=== PATIENT | male | born 2000 | race Caucasian/White ===

== ENCOUNTER 2021-10-25 16:32 | Inpatient (IN) ==
[2021-10-25 17:04] LABS: Basophils # (auto) 0.04 K/uL (0-0.2); Basophils % (auto) 0.7 %; Eosinophils # (auto) 0.25 K/uL (0-0.5); Eosinophils % (auto) 4.4 %; Hematocrit (blood only) 40.1 % (42-52); Hemoglobin 14.1 g/dL (14.0-18.0); Immature Granulocytes # (auto) 0.01 K/uL (0.00-0.02); Immature Granulocytes % (auto) 0.2 %; Lymphocytes # (auto) 1.89 K/uL (1.2-3.4); Mean Corpuscular Hemoglobin 30.9 pg (25-34); Mean Corpuscular Hgb Conc 35.2 g/dL (32-36); Mean Corpuscular Volume 87.9 fL (80-100); Mean Platelet Volume 9.9 fL (7.4-10.4); Monocytes # (auto) 0.56 K/uL (0.11-0.59); Monocytes % (auto) 9.8 %; Neutrophils # (auto) 2.98 K/uL (1.4-6.5); Neutrophils % (auto) 51.9 %; Platelet Count 152 K/uL (130-400); RDW Coefficient of Variation 12.5 % (11.5-14.5); RDW Standard Deviation 40.1 fL (36.4-46.3); Red Blood Count 4.56 M/uL (4.7-6.1); White Blood Count 5.73 K/uL (4.8-10.8)
[2021-10-25 17:17] LABS: Appearance Urine Clear (Clear); Bacteria Urine Automated Negative (Negative); Bilirubin Urine Negative (Negative); Blood Urine Trace (Negative); Cast Urine Automated 0 /lpf (0-5); Color Urine Yellow; Epithelial Cell Urine Auto 0-5 /lpf (0-5); Glucose Urine UA Negative (Negative); Ketones Urine Negative (Negative); Leukocyte Esterase Urine Negative (Negative); Nitrite Urine Negative (Negative); Protein Urine Negative (Negative); RBC Urine Automated 0-4 /hpf (0-4); Specific Gravity Urine 1.007 (1.000-1.030); Urobilinogen Urine Negative (Negative); WBC Urine Automated 0 /hpf (0-5); pH Urine 7.5 (4.5-7.5)
[2021-10-25 17:22] LABS: Albumin Level 4.2 gm/dl (3.4-5.0); BUN Creatinine Ratio 9.8 (10-20); Calcium 9.1 mg/dl (8.5-10.1); Creatinine Clr Calc Pharmacy 120.7 ml/min; Est GFR (African American) 139.3 ml/min; Est GFR (Non-African American) 120.2 ml/min
--- NOTE | 2021-10-25 17:28 | Emergency Department Note ---
Impression & Plan Drug overdose, Suicide attempt by multiple drug overdose ED Provider Note NAME: SAE ARIAS AGE: 20 SEX: M : 2000 ARRIVES VIA: Ambulance INFORMANT: Patient ED PROVIDER(S): Naga Lira DO CHIEF COMPLAINT: Intentional overdose HPI: Patient is a 20-year-old male who presents ER for intentional overdose of hydroxyzine and Lexapro. Hydroxyzine was 25 mg and Lexapro was 10 mg. He believes he had a 30-day supply of each and took about half of the bottle of each around 4 PM. History of depression PTSD and anxiety. He admits that this was a suicide attempt. He denies any change in vision, chest pain, shortness of breath, nausea, vomiting or diarrhea. He admits to a mild headache. No other exacerbating or remitting factors. ROS: See above HPI for pertinent positives & negatives. A total of 10 systems reviewed and were otherwise negative. PAST MEDICAL HISTORY:See Below PAST SURGICAL HISTORY:See Below FAMILY HISTORY:See Below SOCIAL HISTORY:See Below HOME MEDICATIONS:See Below ALLERGIES:See Below VITALS:See Below PHYSICAL EXAMINATION: GENERAL: Sitting up in bed, alert, well appearing, tired, nontoxic EYE EXAM: normal conjunctiva. PERRL and EOM's grossly intact. OROPHARYNX:mask in place LUNGS: Clear to auscultation. Normal chest wall mechanics HEART: no murmurs, S1 normal and S2 normal ABDOMEN: abdomen soft, non-tender, normo-active bowel sounds, no masses, no rebound or guarding. UPPER EXTREMITIES: upper extremities are grossly normal. LOWER EXTREMITIES: No pitting edema. NEURO EXAM: Normal sensorium, cranial nerves II-XII grossly intact, normal speech, no gross weakness of arms, no gross weakness of legs. PSYCH: Admits to suicide attempt with overdose MEDICAL DECISION MAKING: Patient is a 20-year-old male who presents the ER for an intentional overdose as stated above. IV was established blood work was obtained. To contact [facility] poison control. Labs show no significant leukocytosis or anemia. BMP was unremarkable. Mild transaminitis with AST of 64 and ALT of 128. No old to compare to. TSH was unremarkable. UA was negative. Patient was positive for marijuana. Tylenol and salicylates were negative. Patient was monitored closely while in the ER. With the transaminitis [facility] recommended N-acetylcysteine/NAC protocol. Repeat LFTs and INR 4 hours prior to termination of this. Patient will be admitted to the hospitalist Dr. Thomas Peace. Triage Nursing notes reviewed. Limited review of prior medical records performed Vital Signs: reviewed and remarkable for no significant abnormalities Differential diagnosis: Overdose, toxicologic, infection, hypoglycemia, electrolyte abnormalities, cardi ac sources, intracerebral event, neurologic, trauma, as well as other pathologies. ER treatment provided: See below Diagnostics interpreted by me: ECG: Sinus rhythm rate 71 Normal axis No PVCs QTC 423 Cardiac Monitoring: An order was placed for continuous cardiac monitoring. The monitor shows a rate of 70 with sinus rhythm. Laboratory studies: As stated above and show below. Imaging studies: See below Consultation(s): Discussed with [facility] poison control as stated above Discussed with Thomas Peace for further evaluation Procedures: none Critical Care: None Past Med/Surg History Social History Smoking Status: Never smoker Feels Safe at Home: Yes Results & Data (ED) Vital Signs Vital Signs - 24 hr 10/25/21 17:00 10/25/21 17:14 10/25/21 18:00 Temperature 36.9 C Temperature Source Oral Pulse Rate [Right Finger] 78 75 Pulse Rhythm [Right Finger] Regular Regular Pulse Strength [Right Finger] Normal Normal Respiratory Rate 14 17 Respiratory Effort / Characteristics Non-Labored Spontaneous Non-Labored Spontaneous Respiratory Depth Normal Normal Respiratory Pattern Regular Regular Blood Pressure [Left Arm] 126/73 146/87 H Blood Pressure Mean [Left Arm] 90 106 Blood Pressure Position [Left Arm] Lying Semi-fowlers Pulse Oximetry 93 95 Oxygen Delivery Method Room Air Room Air Sepsis Recent Fever Within 48 Hours No Sepsis New/Unexplained Change in Mental Status N/A Sepsis Action Taken by Nursing No Action Required Laboratory Data Result diagrams: 10/25/21 16:55 10/25/21 16:55 Lab Results 10/25/21 10/25/21 10/25/21 Range/Units 16:45 16:45 16:55 WBC 5.73 (4.8-10.8) K/uL RBC 4.56 L (4.7-6.1) M/uL Hgb 14.1 (14.0-18.0) g/dL Hct 40.1 L (42-52) % MCV 87.9 (80-100) fL MCH 30.9 (25-34) pg MCHC 35.2 (32-36) g/dL RDW Std Deviation 40.1 (36.4-46.3) fL RDW Coeff of Dale 12.5 (11.5-14.5) % Plt Count 152 (130-400) K/uL MPV 9.9 (7.4-10.4) fL Immature Gran % (Auto) 0.2 % Neut % (Auto) 51.9 % Lymph % (Auto) 33.0 % [place] % (Auto) 9.8 % Eos % (Auto) 4.4 % Baso % (Auto) 0.7 % Neut # (Auto) 2.98 (1.4-6.5) K/uL Lymph # (Auto) 1.89 (1.2-3.4) K/uL [place] # (Auto) 0.56 (0.11-0.59) K/uL Eos # (Auto) 0.25 (0-0.5) K/uL Baso # (Auto) 0.04 (0-0.2) K/uL Immature Gran # (Auto) 0.01 (0.00-0.02) K/uL Sodium (136-145) mmol/L Potassium (3.5-5.1) mmol/L Chloride (98-107) mmol/L Carbon Dioxide (21-32) mmol/L Anion Gap (3-11) BUN (7-18) mg/dl Creatinine (0.6-1.4) mg/dl Est Cr Clr Drug Dosing ml/min Est GFR ( Amer) ml/min Est GFR (Non-Af Amer) ml/min BUN/Creatinine Ratio (10-20) Glucose (70-99) mg/dl Calcium (8.5-10.1) mg/dl Total Bilirubin (0.2-1) mg/dl AST (15-37) U/L ALT (12-78) Alkaline Phosphatase (45-117) U/L Total Protein (6.4-8.2) gm/dl Albumin (3.4-5.0) gm/dl Globulin (2.5-4.0) gm/dl Albumin/Globulin Ratio (0.9-2) TSH (0.300-4.500) uIu/ml Urine Color Yellow Urine Appearance Clear (Clear) Urine pH 7.5 (4.5-7.5) Ur Specific [place] 1.007 (1.000-1.030) Urine Protein Negative (Negative) Urine Glucose (UA) Negative (Negative) Urine Ketones Negative (Negative) Urine Blood Trace H (Negative) Urine Nitrite Negative (Negative) Urine Bilirubin Negative (Negative) Urine Urobilinogen Negative (Negative) Ur Leukocyte Esterase Negative (Negative) Urine WBC (Auto) 0 (0-5) /hpf Urine RBC (Auto) 0-4 (0-4) /hpf U Hyaline Cast (Auto) 0 (0-5) /lpf U Epithel Cells (Auto) 0-5 (0-5) /lpf Urine Bacteria (Auto) Negative (Negative) Salicylates (2.8-20) mg/dl Urine Opiates Screen Neg (Neg) Ur Methadone, Qual Neg (Neg) Acetaminophen (10-30) ug/ml Urine Barbiturates Neg (Neg) Ur Phencyclidine (PCP) Neg (Neg) U Amphetamin/Meth Scrn Neg (Neg) MDMA (Ecstasy) Screen Neg (Neg) U Benzodiazepines Scrn Neg (Neg) Ur Cocaine Metabolite Neg (Neg) U Marijuana (THC) Screen Pos H (Neg) Ethyl Alcohol mg/dL (0-3) mg/dl 10/25/21 10/25/21 10/25/21 Range/Units 16:55 17:25 17:25 WBC (4.8-10.8) K/uL RBC (4.7-6.1) M/uL Hgb (14.0-18.0) g/dL Hct (42-52) % MCV (80-100) fL MCH (25-34) pg MCHC (32-36) g/dL RDW Std Deviation (36.4-46.3) fL RDW Coeff of [place] (11.5-14.5) % Plt Count (130-400) K/uL MPV (7.4-10.4) fL Immature Gran % (Auto) % Neut % (Auto) % Lymph % (Auto) % [place] % (Auto) % Eos % (Auto) % Baso % (Auto) % Neut # (Auto) (1.4-6.5) K/uL Lymph # (Auto) (1.2-3.4) K/uL [place] # (Auto) (0.11-0.59) K/uL Eos # (Auto) (0-0.5) K/uL Baso # (Auto) (0-0.2) K/uL Immature Gran # (Auto) (0.00-0.02) K/uL Sodium 138 (136-145) mmol/L Potassium 4.0 (3.5-5.1) mmol/L Chloride 104 (98-107) mmol/L Carbon Dioxide 28 (21-32) mmol/L Anion Gap 6.0 (3-11) BUN 9 (7-18) mg/dl Creatinine 0.92 (0.6-1.4) mg/dl Est Cr Clr Drug Dosing 120.7 ml/min Est GFR ( Amer) 139.3 ml/min Est GFR (Non-Af Amer) 120.2 ml/min BUN/Creatinine Ratio 9.8 L (10-20) Glucose 96 (70-99) mg/dl Calcium 9.1 (8.5-10.1) mg/dl Total Bilirubin 0.4 (0.2-1) mg/dl AST 64 H (15-37) U/L ALT 128 H (12-78) Alkaline Phosphatase 76 (45-117) U/L Total Protein 7.5 (6.4-8.2) gm/dl Albumin 4.2 (3.4-5.0) gm/dl Globulin 3.3 (2.5-4.0) gm/dl Albumin/Globulin Ratio 1.3 (0.9-2) TSH 2.720 (0.300-4.500) uIu/ml Urine Color Urine Appearance (Clear) Urine pH (4.5-7.5) Ur Specific [place] (1.000-1.030) Urine Protein (Negative) Urine Glucose (UA) (Negative) Urine Ketones (Negative) Urine Blood (Negative) Urine Nitrite (Negative) Urine Bilirubin (Negative) Urine Urobilinogen (Negative) Ur Leukocyte Esterase (Negative) Urine WBC (Auto) (0-5) /hpf Urine RBC (Auto) (0-4) /hpf U Hyaline Cast (Auto) (0-5) /lpf U Epithel Cells (Auto) (0-5) /lpf Urine Bacteria (Auto) (Negative) Salicylates < 1.7 L (2.8-20) mg/dl Urine Opiates Screen (Neg) Ur Methadone, Qual (Neg) Acetaminophen < 2 L (10-30) ug/ml Urine Barbiturates (Neg) Ur Phencyclidine (PCP) (Neg) U Amphetamin/Meth Scrn (Neg) MDMA (Ecstasy) Screen (Neg) U Benzodiazepines Scrn (Neg) Ur Cocaine Metabolite (Neg) U Marijuana (THC) Screen (Neg) Ethyl Alcohol mg/dL < 3.0 (0-3) mg/dl Discharge Plan Visit Data Chief Complaint: Overdose (Intentional) ED Provider: Naga Lira Discharge Problem: Drug overdose, Suicide attempt by multiple drug overdose Forms Stand Alone Forms: [facility], Suicide Prevention Resources Referrals Referrals: PCP,NO [Physician] - Discharge Problem: Drug overdose Qualifiers: Encounter type: initial encounter Injury intent: intentional self-harm Qualified Code(s): T50.902A - Poisoning by unspecified drugs, medicaments and biological substances, intentional self-harm, initial encounter Suicide attempt by multiple drug overdose Qualifiers: Encounter type: initial encounter Qualified Code(s): T50.912A - Poisoning by multiple unspecified drugs, medicaments and biological substances, intentional self-harm, initial encounter
[2021-10-25 17:32] LABS: Albumin Globulin Ratio 1.3 (0.9-2); Bilirubin,Total 0.4 mg/dl (0.2-1); Globulin 3.3 gm/dl (2.5-4.0); Thyroid Stimulating Hormone 2.72 uIu/ml (0.300-4.500); Total Protein 7.5 gm/dl (6.4-8.2)
[2021-10-25 17:34] LABS: Amphetamines+Metham, Urine Neg (Neg); Barbiturates, Urine Neg (Neg); Benzodiazepine, Urine Neg (Neg); Cocaine, Urine Neg (Neg); MDMA (Ecstacy), Urine Neg (Neg); Methadone, Urine Neg (Neg); Opiate, Urine Neg (Neg); Phencyclidine, Urine Neg (Neg)
[2021-10-25 18:15] LABS: Acetaminophen < 2 ug/ml (10-30); Salicylate < 1.7 mg/dl (2.8-20)
[2021-10-25 20:11] LABS: INR 1.1 (0.9-1.1); Prothrombin Time 10.9 Seconds (9.0-12.0)
[2021-10-25] MEDS ORDERED: AcetylCYSTEINE IV 21 HR REGIMEN (>40KG) IV STA (20:24)
--- NOTE | 2021-10-25 21:50 | History & Physical Report ---
Date of Service October 25, 2021 Assessment & Plan (1) Suicide attempt by multiple drug overdose: Plan: 20 yo admitted for medical clearance after intentional overdose prior to psychiatric admission with 302. Intentional Overdose - EKG normal sinus with QTc 423. Daily EKGs for QTc monitoring - monitor for anticholinergic toxicity -- anhydrosis/hyperthermia/mydriasis/delirium/hallucinations/bladder distension - unlikely to have sx of serotonin toxicity with only lexapro. - Denies acetaminophen intake -- per poison control discussion with ER provider, recommended NAC protocol. undetectable salicylate and acetaminophen levels. - Follow up PT/INR, CMP in AM Suicide Attempt - one to one - safety tray - 302 admission to psych after medically clear - hold lexapro/hydroxyzine DVT ppx: low risk, ambulate ad rylie in room FEN/GI: regular diet, safe tray Bowel regimen: prn Code Status: full code Dispo: med/tele pending medical clearance for transfer to psychiatry (2) Depression: (3) Anxiety: (4) PTSD (post-traumatic stress disorder): History of Present Illness Primary Care Provider: [facility] 20 yo M with hx anxiety, depression, unspecified PTSD brought to ER for attempted suicide by intentional OD. He took approximately half a 30 day bottle of hydroxyzine and lexapro. He denies any history of psychiatric hospitalizations, prior suicide attempts. He denies having had a plan, just that the suicidal ideations had been steadily building and today was a 'breaking point', and he took the pills because that was what was near him. He denies any family hx of psychiatric illness. He denies any visual/auditory/tactile hallucinations. He sees a psychiatrist in [place] [employer], [place] where he's from. He says he does have a support system and people to talk to locally, and has a decent relationship with his roommate. He denies any chest pain, SOB, numbness, tingling, dizziness. He does have a mild headache and feels dizzy. No chronic medical conditions or medications other than the hydroxyzine and lexapro. Denies smoking, vaping history. Smoked weed last week, but denies other drug use including cocaine/meth/heroine etc. No hx IVDU. Allergies Allergy/AdvReac Type Severity Reaction Status Date / Time No Known Allergies Allergy Verified 10/26/21 02:27 Past Med/Surg History Medical History (Updated 10/26/21 @ 00:57 by Laurence Salinas MD) Anxiety Depression PTSD (post-traumatic stress disorder) Social History Smoking Status: Never smoker Feels Safe at Home: Yes Review of Systems Review of Systems: All systems reviewed & are unremarkable except as noted in Subjective Physical Exam Physical Exam: Constitutional: in NAD, sad and fatigued appearing Eyes: EOMI, pupils equal and reactive bilaterally, no scleral icterus Cardiac: RRR, no murmurs, gallops or rubs. Normal S1, S2 Pulm: CTA BL, no wheezes, rhonchi, crackles or rubs, moving air well throughout both lungs Abd: soft, nontender, nondistended, normal bowel sounds, no rebound or guarding Extremities: 2+ peripheral pulses, no edema Neuro: no focal deficits, moving all 4 limbs, A&Ox3, no tremoring Psych: congruent mood and affect, no hallucinations, speech normal pace and rhythm, non-tangential Results & Data Results & Data ([facility]) Vital Signs (Past 12 Hours) Vital Signs Temp Pulse Pulse Resp BP BP Pulse Ox 10/25/21 21:30 76 19 112/55 L 95 10/25/21 21:00 63 15 94 10/25/21 20:30 63 16 94 10/25/21 20:00 71 18 123/71 95 10/25/21 19:30 74 16 117/75 94 10/25/21 18:00 75 17 146/87 H 95 10/25/21 17:00 36.9 C 78 14 126/73 93 Laboratory Results Laboratory Results WBC 5.73 K/uL (4.8-10.8) 10/25/21 16:55 RBC 4.56 M/uL (4.7-6.1) L 10/25/21 16:55 Hgb 14.1 g/dL (14.0-18.0) 10/25/21 16:55 Hct 40.1 % (42-52) L 10/25/21 16:55 MCV 87.9 fL (80-100) 10/25/21 16:55 MCH 30.9 pg (25-34) 10/25/21 16:55 MCHC 35.2 g/dL (32-36) 10/25/21 16:55 RDW Std Deviation 40.1 fL (36.4-46.3) 10/25/21 16:55 RDW Coeff of Dale 12.5 % (11.5-14.5) 10/25/21 16:55 Plt Count 152 K/uL (130-400) 10/25/21 16:55 MPV 9.9 fL (7.4-10.4) 10/25/21 16:55 Immature Gran % (Auto) 0.2 % 10/25/21 16:55 Neut % (Auto) 51.9 % 10/25/21 16:55 Lymph % (Auto) 33.0 % 10/25/21 16:55 [place] % (Auto) 9.8 % 10/25/21 16:55 Eos % (Auto) 4.4 % 10/25/21 16:55 Baso % (Auto) 0.7 % 10/25/21 16:55 Neut # (Auto) 2.98 K/uL (1.4-6.5) 10/25/21 16:55 Lymph # (Auto) 1.89 K/uL (1.2-3.4) 10/25/21 16:55 [place] # (Auto) 0.56 K/uL (0.11-0.59) 10/25/21 16:55 Eos # (Auto) 0.25 K/uL (0-0.5) 10/25/21 16:55 Baso # (Auto) 0.04 K/uL (0-0.2) 10/25/21 16:55 Immature Gran # (Auto) 0.01 K/uL (0.00-0.02) 10/25/21 16:55 PT 10.9 Seconds (9.0-12.0) 10/25/21 19:47 INR 1.1 (0.9-1.1) 10/25/21 19:47 Sodium 143 mmol/L (136-145) 10/26/21 00:24 Potassium 3.8 mmol/L (3.5-5.1) 10/26/21 00:24 Chloride 106 mmol/L (98-107) 10/26/21 00:24 Carbon Dioxide 28 mmol/L (21-32) 10/26/21 00:24 Anion Gap 8.0 (3-11) 10/26/21 00:24 BUN 9 mg/dl (7-18) 10/26/21 00:24 Creatinine 0.79 mg/dl (0.6-1.4) 10/26/21 00:24 Est Cr Clr Drug Dosing 140.6 ml/min 10/26/21 00:24 Est GFR ( Amer) > 150.0 ml/min 10/26/21 00:24 Est GFR (Non-Af Amer) 130.2 ml/min 10/26/21 00:24 BUN/Creatinine Ratio 11.5 (10-20) 10/26/21 00:24 Glucose 111 mg/dl (70-99) H 10/26/21 00:24 Calcium 8.8 mg/dl (8.5-10.1) 10/26/21 00:24 Total Bilirubin 0.3 mg/dl (0.2-1) 10/26/21 00:24 AST 61 U/L (15-37) H 10/26/21 00:24 ALT 134 (12-78) H 10/26/21 00:24 Alkaline Phosphatase 68 U/L (45-117) 10/26/21 00:24 Total Protein 7.3 gm/dl (6.4-8.2) 10/26/21 00:24 Albumin 3.9 gm/dl (3.4-5.0) 10/26/21 00:24 Globulin 3.4 gm/dl (2.5-4.0) 10/26/21 00:24 Albumin/Globulin Ratio 1.1 (0.9-2) 10/26/21 00:24 TSH 2.720 uIu/ml (0.300-4.500) 10/25/21 16:55 Urine Color Yellow 10/25/21 16:45 Urine Appearance Clear (Clear) 10/25/21 16:45 Urine pH 7.5 (4.5-7.5) 10/25/21 16:45 Ur Specific [place] 1.007 (1.000-1.030) 10/25/21 16:45 Urine Protein Negative (Negative) 10/25/21 16:45 Urine Glucose (UA) Negative (Negative) 10/25/21 16:45 Urine Ketones Negative (Negative) 10/25/21 16:45 Urine Blood Trace (Negative) H 10/25/21 16:45 Urine Nitrite Negative (Negative) 10/25/21 16:45 Urine Bilirubin Negative (Negative) 10/25/21 16:45 Urine Urobilinogen Negative (Negative) 10/25/21 16:45 Ur Leukocyte Esterase Negative (Negative) 10/25/21 16:45 Urine WBC (Auto) 0 /hpf (0-5) 10/25/21 16:45 Urine RBC (Auto) 0-4 /hpf (0-4) 10/25/21 16:45 U Hyaline Cast (Auto) 0 /lpf (0-5) 10/25/21 16:45 U Epithel Cells (Auto) 0-5 /lpf (0-5) 10/25/21 16:45 Urine Bacteria (Auto) Negative (Negative) 10/25/21 16:45 Salicylates < 1.7 mg/dl (2.8-20) L 10/25/21 17:25 Urine Opiates Screen Neg (Neg) 10/25/21 16:45 Ur Methadone, Qual Neg (Neg) 10/25/21 16:45 Acetaminophen < 2 ug/ml (10-30) L 10/25/21 17:25 Urine Barbiturates Neg (Neg) 10/25/21 16:45 Ur Phencyclidine (PCP) Neg (Neg) 10/25/21 16:45 U Amphetamin/Meth Scrn Neg (Neg) 10/25/21 16:45 MDMA (Ecstasy) Screen Neg (Neg) 10/25/21 16:45 U Benzodiazepines Scrn Neg (Neg) 10/25/21 16:45 Ur Cocaine Metabolite Neg (Neg) 10/25/21 16:45 U Marijuana (THC) Screen Pos (Neg) H 10/25/21 16:45 Ethyl Alcohol mg/dL < 3.0 mg/dl (0-3) 10/25/21 17:25 SARS-CoV-2, RNA, NAAT NEGATIVE (NEGATIVE) 10/25/21 19:55 Supervising Physician Co-Signing Physician Notes Attending addendum: I have supervised the medical residents activities, and agree with the H&P unless as otherwise noted. Assessment and Plan: Suicide attempt by multiple drug overdose- Admit to monitored bed follow-up for anticholinergic toxicity Continue NAC protocol as recommendation from poison control Repeat laboratories as requested in 4 hours and in the morning 302 in affect Psychiatry consulted Remaining orders and notations as noted Resident Activity Tracking Resident Involvement: Resident Care Provided Care Provided: Adult Hospital Medicine (1) Suicide attempt by multiple drug overdose Encounter type: initial encounter Qualified Code(s): T50.912A - Poisoning by multiple unspecified drugs, medicaments and biological substances, intentional self-harm, initial encounter
[2021-10-25] MEDS ORDERED: ONDANSETRON INJ 2 MG/ML 2 ML VIAL ONE (22:51)
[2021-10-25] MEDS ORDERED: ONDANSETRON INJ 2 MG/ML 2 ML VIAL IV PRN (22:59)
[2021-10-26 00:55] LABS: Alanine Aminotransferase 134 (12-78); Albumin Level 3.9 gm/dl (3.4-5.0); Aspartate Aminotransferase 61 U/L (15-37); BUN Creatinine Ratio 11.5 (10-20); Blood Urea Nitrogen 9 mg/dl (7-18); Calcium 8.8 mg/dl (8.5-10.1); Carbon Dioxide 28 mmol/L (21-32); Chloride 106 mmol/L (98-107); Creatinine Clr Calc Pharmacy 140.6 ml/min; Est GFR (African American) > 150.0 ml/min; Est GFR (Non-African American) 130.2 ml/min; Glucose 111 mg/dl (70-99); Potassium 3.8 mmol/L (3.5-5.1); Sodium 143 mmol/L (136-145)
[2021-10-26 00:58] LABS: Albumin Globulin Ratio 1.1 (0.9-2); Alkaline Phosphatase 68 U/L (45-117); Bilirubin,Total 0.3 mg/dl (0.2-1); Globulin 3.4 gm/dl (2.5-4.0); Total Protein 7.3 gm/dl (6.4-8.2)
--- NOTE | 2021-10-26 10:18 | Electrocardiogram Report ---
Test Reason : Blood Pressure : / mmHG Vent. Rate : 071 BPM Atrial Rate : 071 BPM P-R Int : 148 ms QRS Dur : 094 ms QT Int : 390 ms P-R-T Axes : 056 054 052 degrees QTc Int : 423 ms Normal sinus rhythm Normal ECG No previous ECGs available Confirmed by Chang Sanders ([id number]) on 10/26/2021 10:18:00 AM Referred By: REFERRED SELF Confirmed By:Chang Sanders
--- NOTE | 2021-10-26 11:16 | Hospitalist Progress Note ---
Date of Service October 26, 2021 Assessment & Plan (1) Suicide attempt by multiple drug overdose: Plan: 20 yo admitted for medical clearance after intentional overdose prior to psychiatric admission with 302. Suicide Attempt by Intentional Overdose: - EKG normal sinus with QTc 423. Daily EKGs for QTc monitoring - monitor for anticholinergic toxicity -- anhydrosis/hyperthermia/mydriasis/delirium/hallucinations/bladder distension - unlikely to have sx of serotonin toxicity with only lexapro. - Denies acetaminophen intake: per poison control discussion with ER provider, recommended NAC protocol. - undetectable salicylate and acetaminophen levels. -AST elevated and ALT continuing to rise throughout the day, APAP level negative x2 - Creatinine Kinase negative - given rise in ALT, and discussion with Poison control will extend NAC treatment overnight - recheck PT/INR, CMP in AM - safety tray - 302 admission to psych after medically clear - continue to hold lexapro/hydroxyzine at this time FEN/GI: regular diet, safe tray Bowel regimen: prn Code Status: full code (2) Transaminitis: (3) Depression: (4) Anxiety: (5) PTSD (post-traumatic stress disorder): Admission and Anticipated Discharge Date Admission Date: October 25, 2021 Supervising Physician Co-Signing Physician Notes I personally examined the patient and verified all nguyễn points of history and exam, discussed case, and agree with decision making with Dr. Fry with the following additions/exceptions: Patient feeling well, no nausea or vomiting, no abdominal pain, no chest pain or shortness of breath. He denies muscular pain. No difficulty with urination his urine is yellow and clear. Vitals reviewed Gen: AAOx3, NAD HEENT: anicteric sclerae, EOMI, pupils dilated but reactive CV: RRR no mgr nl S1S2 Pulm: CTAB no wcr Abd: +BS soft NT ND no masses or hernias Ext: No edema, 2+ DP pulses Skin: No rashes, warm/dry Neuro: Full strength throughout Labs reviewed 20-year-old male here with intentional overdose of Lexapro and hydroxyzine, with mild transaminitis Continue NAC as per poison control recommendation although negative APAP level x2 CK normal Suspect mild transaminitis secondary to overdose, but no signs of fulminant liver failure Doing well otherwise Repeat LFTs in the morning and if improving, stop NAC and discharge to psychiatric care Subjective Doing well overnight, with no additional concerns or complaints at this time. Feels remorseful for suicide attempt, but endorses that he felt overwhelmed with everything and immediately after called for help. Review of Systems Review of Systems: All systems reviewed & are unremarkable except as noted in Subjective Physical Exam Constitutional: WD/WN, vitals as above Eyes: PERRL, conjunctivae normal, anicteric sclerae + dilated pupils Respiratory: normal respiratory effort, lungs clear to auscultation Auscultation: no crackles, no rales, no rhonchi and no wheezes Cardiovascular: Rate/Rhythm: regular rate and regular rhythm Heart Sounds: no gallop, no murmur and no cardiac rub Vessels: normal peripheral pulses; no JVD Extremities: no edema Gastrointestinal (Abdomen): Inspection/Auscultation: normal bowel sounds; abdomen not distended Percussion/Palpation: abdomen soft; abdomen nontender and no guarding Musculoskeletal: no cyanosis or clubbing, extremities motor strength 5/5 Neurologic: PERRL, EOMI, accommodation nl, no face palsy, no dysarthria CN's II-XI intact bilaterally and moves all extremities Psychiatric: Orientation: alert and oriented x 3 Results & Data Results & Data ([facility]) Vital Signs (Past 12 Hours) Vital Signs Pulse Pulse Resp BP BP Pulse Ox Pulse Ox 10/26/21 08:00 66 14 124/76 95 10/26/21 06:00 65 14 113/71 97 10/26/21 04:00 68 19 104/60 95 10/26/21 02:30 66 16 137/78 94 10/25/21 23:30 64 16 129/74 93 93 Laboratory Results 10/26/21 10/26/21 10/26/21 Range/Units 15:17 15:17 15:17 PT (9.0-12.0) Seconds INR (0.9-1.1) Sodium (136-145) mmol/L Potassium (3.5-5.1) mmol/L Chloride (98-107) mmol/L Carbon Dioxide (21-32) mmol/L Anion Gap (3-11) BUN (7-18) mg/dl Creatinine (0.6-1.4) mg/dl Est Cr Clr Drug Dosing ml/min Est GFR ( Amer) ml/min Est GFR (Non-Af Amer) ml/min BUN/Creatinine Ratio (10-20) Glucose (70-99) mg/dl Calcium (8.5-10.1) mg/dl Total Bilirubin 0.5 (0.2-1) mg/dl Direct Bilirubin 0.1 (0-0.2) mg/dl AST 62 H (15-37) U/L ALT 160 H (12-78) Alkaline Phosphatase 74 (45-117) U/L Total Creatine Kinase 237 (39-308) U/L Total Protein 7.7 (6.4-8.2) gm/dl Albumin 4.0 (3.4-5.0) gm/dl Globulin (2.5-4.0) gm/dl Albumin/Globulin Ratio (0.9-2) Acetaminophen < 2 L (10-30) ug/ml SARS-CoV-2, RNA, NAAT (NEGATIVE) 10/26/21 10/26/21 10/25/21 Range/Units 15:17 00:24 19:55 PT 11.4 (9.0-12.0) Seconds INR 1.1 (0.9-1.1) Sodium 143 (136-145) mmol/L Potassium 3.8 (3.5-5.1) mmol/L Chloride 106 (98-107) mmol/L Carbon Dioxide 28 (21-32) mmol/L Anion Gap 8.0 (3-11) BUN 9 (7-18) mg/dl Creatinine 0.79 (0.6-1.4) mg/dl Est Cr Clr Drug Dosing 140.6 ml/min Est GFR ( Amer) > 150.0 ml/min Est GFR (Non-Af Amer) 130.2 ml/min BUN/Creatinine Ratio 11.5 (10-20) Glucose 111 H (70-99) mg/dl Calcium 8.8 (8.5-10.1) mg/dl Total Bilirubin 0.3 (0.2-1) mg/dl Direct Bilirubin (0-0.2) mg/dl AST 61 H (15-37) U/L ALT 134 H (12-78) Alkaline Phosphatase 68 (45-117) U/L Total Creatine Kinase (39-308) U/L Total Protein 7.3 (6.4-8.2) gm/dl Albumin 3.9 (3.4-5.0) gm/dl Globulin 3.4 (2.5-4.0) gm/dl Albumin/Globulin Ratio 1.1 (0.9-2) Acetaminophen (10-30) ug/ml SARS-CoV-2, RNA, NAAT NEGATIVE (NEGATIVE) 10/25/21 Range/Units 19:47 PT 10.9 (9.0-12.0) Seconds INR 1.1 (0.9-1.1) Sodium (136-145) mmol/L Potassium (3.5-5.1) mmol/L Chloride (98-107) mmol/L Carbon Dioxide (21-32) mmol/L Anion Gap (3-11) BUN (7-18) mg/dl Creatinine (0.6-1.4) mg/dl Est Cr Clr Drug Dosing ml/min Est GFR ( Amer) ml/min Est GFR (Non-Af Amer) ml/min BUN/Creatinine Ratio (10-20) Glucose (70-99) mg/dl Calcium (8.5-10.1) mg/dl Total Bilirubin (0.2-1) mg/dl Direct Bilirubin (0-0.2) mg/dl AST (15-37) U/L ALT (12-78) Alkaline Phosphatase (45-117) U/L Total Creatine Kinase (39-308) U/L Total Protein (6.4-8.2) gm/dl Albumin (3.4-5.0) gm/dl Globulin (2.5-4.0) gm/dl Albumin/Globulin Ratio (0.9-2) Acetaminophen (10-30) ug/ml SARS-CoV-2, RNA, NAAT (NEGATIVE) Medications Administered Current Inpatient Medications Acetylcysteine 7,500 mg/ (Dextrose) 1,037.5 mls @ 62.5 mls/hr IV ONCE ONE; Protocol Stop: 10/27/21 10:35 Ondansetron HCl (Ondansetron Inj 2 Mg/Ml 2 Ml Vial) 4 mg IV Q6H PRN PRN Reason: Nausea Stop: 11/24/21 22:58 Resident Activity Tracking Resident Involvement: Resident Care Provided Care Provided: Adult Hospital Medicine (1) Suicide attempt by multiple drug overdose Encounter type: initial encounter Qualified Code(s): T50.912A - Poisoning by multiple unspecified drugs, medicaments and biological substances, intentional self-harm, initial encounter
[2021-10-26 16:03] LABS: INR 1.1 (0.9-1.1); Prothrombin Time 11.4 Seconds (9.0-12.0)
[2021-10-26 16:19] LABS: Bilirubin Direct 0.1 mg/dl (0-0.2); Bilirubin,Total 0.5 mg/dl (0.2-1); Total Protein 7.7 gm/dl (6.4-8.2)
--- NOTE | 2021-10-26 19:58 | Billing Data ---
Date of Service October 26, 2021 Coding Level of Care Code 09644 Initial Inpt Care Lvl 2
--- NOTE | 2021-10-26 21:19 | Billing Data ---
Date of Service October 26, 2021 Coding Level of Care Code 16166 Subseq Hosp Care Lvl 2
[2021-10-27 07:07] LABS: Bilirubin Direct 0.1 mg/dl (0-0.2); Bilirubin,Total 0.7 mg/dl (0.2-1); Total Protein 7.5 gm/dl (6.4-8.2)
[2021-10-27 07:29] LABS: INR 1.1 (0.9-1.1); Prothrombin Time 11.5 Seconds (9.0-12.0)
--- NOTE | 2021-10-27 09:59 | Psychiatric Consultation ---
Date of Consultation October 27, 2021 Impression / Recommendations Impression The patient is a 20 year old with a history of depression, anxiety and PTSD recently started on escitalopram who presented following a suicide attempt via polypharmacy and admitted medically. Diagnostically consistent with MDD. He remains at high acute risk of self-harm given suicide attempt with lethal potential though encouragingly was help seeking, impulsivity, major depressive episode, psychiatric comorbidities-PTSD/TANMAY. Chronic risk is low given multiple protective factors. Most significant modifiable risk factor is to treat his current major depressive episode to reduce likelihood for future SI. The patient is deemed unstable and requires psychiatric hospitalization for diagnostic clarification, safety and stabilization, medication management and development of further coping skills. Hold medications for now given elevated liver enzymes and pending medical clearance. Once medically cleared will proceed with plan for inpatient psychiatric admission. (1) PTSD (post-traumatic stress disorder): (2) TANAMY (generalized anxiety disorder): (3) Suicide attempt by multiple drug overdose: Encounter type: initial encounter Qualified Code(s): T50.912A - Poisoning by multiple unspecified drugs, medicaments and biological substances, intentional self-harm, initial encounter (4) MDD (major depressive disorder), single episode, moderate: -Continue 1-1 observation -May not leave AMA or without psych clearance -Hold medications for now -Plan for psychiatric admission once medically stable -Discussed with Dr. 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 Psychiatry was consulted for management and disposition. Chief Complaint "The depression got bad really quickly". 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 He describes a history of anxiety and PTSD since his sophomore year of high school related to identity stressors and then fairly rapid onset of depressive symptoms starting this fall and progressively worsening. He denies any specific triggers for the depression or suicide attempt but notes that returning to school this fall following COVID restrictions last year has been a big change and adjustment and his concentration and grades have been negatively impacted from the depression. He endorses depressive symptoms of difficulty with sleep, anhedonia, hopelessness, low self-esteem/self-worth, guilt, decreased concentration and SI. He states his suicide attempt was very impulsive and he "immediately regretted it" and called 911 right away. He is glad to be alive and denies current SI but continues to feel depressed and anxious. Psychiatric ROS notable for anxiety, depression, no hx prosper, no hx psychosis, hx social use of substances (marijuana once weekly and alcohol occasionally with friends). He sought mental health treatment for the first time about 1 month ago and saw a PNP at [facility] who started him on atarax 25mg prn (taking about every 3 days) and lexapro 10mg qd. He noticed a benefit after 2 weeks but then this benefit seemed to diminish after week 3. He denies any psychiatric family history. Past Psychiatric History Outpatient Services: therapist in [place] since 3 weeks ago Previous Psych Admissions: never Do You Have Access To A Gun?: No History of Previous Suicide Attempt: No Past Medication Trials: none Allergies Allergy/AdvReac Type Severity Reaction Status Date / Time No Known Allergies Allergy Verified 10/26/21 02:27 Family History none Substance Abuse History social use of marijuana and alcohol Personal History Living Arrangements: [facility] Childhood: [place] Employment Status: Student Beliefs That Will Affect Care: None History of Legal Problems: none Psychological Trauma History Comment: yes-emotional trauma from high school Patient History Medical History (Updated 10/27/21 @ 09:54 by Chayo Jung MD) Anxiety Depression TAMNAY (generalized anxiety disorder) PTSD (post-traumatic stress disorder) Social History Smoking Status: Never smoker Hx Alcohol Use: Yes Hx Substance Use: Yes Last Used Substance: Days (ago) Last Used Substance Other:: 3 Preferred Language: [place]orese Escrow Secretary Required: No Beliefs That Will Affect Care: None Current Living Situation: Parent Feels Safe at Home: Yes Safety Concerns: Feels Safe At This Time Physical Exam Psychiatric: Orientation: alert and oriented x 3 Apperance: appropriately dressed and appropriately groomed Eye Contact: good eye contact Motor Behavior: steady gait and station and no abnormal motor movements Speech: normal rate/rhythm/volume of speech Affect: + depressed affect Mood: + depressed mood and + anxious mood Thought Process: goal directed thought process Thought Content: reality based without delusions Suicidal Thoughts: denies suicidal thoughts Homicidal Thoughts: denies homicidal thoughts Hallucinations: no auditory hallucinations and no visual hallucinations Cognition: recent memory grossly intact, remote memory grossly intact, attention grossly intact and language grossly intact Estimated Intelligence: consistent with education level Insight: + fair insight Judgement: + fair judgement Vital Signs (Past 24 Hours): Last Vital Signs Temp 37.1 C 10/25/21 23:00 Pulse 73 10/27/21 08:51 Resp 16 10/27/21 08:51 BP 114/65 10/27/21 08:51 Pulse Ox 95 10/27/21 08:51 Review of Systems All systems reviewed & are unremarkable except as noted in HPI & below Results & Data ([facility]) Medications Administered Acetylcysteine 7,500 mg/ (Dextrose) 1,037.5 mls @ 62.5 mls/hr IV ONCE ONE; Protocol Stop: 10/27/21 10:35 Last Admin: 10/26/21 18:52 Dose: 62.5 mls/hr Documented by: [id number] Coding Level of Care Code 90076 Inpt Consult Level 3 Diagnoses PTSD (post-traumatic stress disorder) F43.10 TANMAY (generalized anxiety disorder) F41.1 Suicide attempt by multiple drug overdose T50.912A Encounter type: initial encounter MDD (major depressive disorder), single episode, moderate F32.1
--- NOTE | 2021-10-27 12:13 | Hospitalist Progress Note ---
Date of Service October 27, 2021 Assessment & Plan (1) Suicide attempt by multiple drug overdose: Plan: 20 yo admitted for medical clearance after intentional overdose prior to psychiatric admission with 302. Suicide Attempt by Intentional Overdose: - EKG normal sinus with QTc 423. Daily EKGs for QTc monitoring - monitor for anticholinergic toxicity -- anhydrosis/hyperthermia/mydriasis/delirium/hallucinations/bladder distension - unlikely to have sx of serotonin toxicity with only lexapro. - Denies acetaminophen intake: per poison control discussion with ER provider, recommended NAC protocol. - undetectable salicylate and acetaminophen levels. - ALT continued to rise and now stable at 160, AST improving - Creatinine Kinase negative - RUQ US negative - ALT this AM maintained elevated at 160 - given stationary ALT elevation, discussion with Poison control will extend Acetadote by another 16 hours at this time - repeat PT/INR, CMP at 2200 - safety tray - 302 admission to psych after medically clear - continue to hold Lexapro/Hydroxyzine at this time FEN/GI: regular diet, safe tray Bowel regimen: prn Code Status: full code Disposition: Med/Surg with telemetry; awaiting medical clearance before inpatient psychiatric admission (2) Depression: (3) Anxiety: (4) PTSD (post-traumatic stress disorder): (5) Transaminitis: Admission and Anticipated Discharge Date Admission Date: October 25, 2021 Supervising Physician Co-Signing Physician Notes I personally examined the patient and verified all nguyễn points of history and exam, discussed case, and agree with decision making with Dr. Fry with the following additions/exceptions: Patient has no complaints. No abdominal pain. Is eating and drinking well. I reviewed his previous labs that his mom had on his [employer] account from [place] from when he was on Accutane. Previously his AST and ALT at most were only a few points above the upper limit of normal. Patient is otherwise doing well. Vitals reviewed Gen: AAOx3, NAD HEENT: anicteric sclerae, EOMI CV: RRR no mgr nl S1S2 Pulm: CTAB no wcr Abd: +BS soft NT ND no masses or hernias Ext: No edema, 2+ DP pulses Skin: No rashes, warm/dry Neuro: Full strength throughout Labs reviewed 20-year-old male here with intentional overdose of Lexapro and hydroxyzine, with mild transaminitis Continue NAC as per poison control recommendation although negative APAP level x2 but treating in case of liver toxicity from SSRI overdose CK normal Suspect mild transaminitis secondary to overdose, but no signs of fulminant liver failure Doing well otherwise Repeat LFTs again tonight and if improving, stop NAC and discharge to psychiatric care-supposedly they will have a bed available for him tonight Subjective Doing well this morning, feeling well just mostly bored at this time waiting for his labs to normalize so he can start progressing. Recalls that earlier this year he had been on Accutane and was getting his liver monitored but does not recall if everything was normal on the last check this summer. Had been on Accutane for several months over the last several years. Review of Systems Review of Systems: All systems reviewed & are unremarkable except as noted in Subjective Physical Exam Constitutional: WD/WN, vitals as above Eyes: PERRL, conjunctivae normal, anicteric sclerae + dilated pupils Respiratory: normal respiratory effort, lungs clear to auscultation Auscultation: no crackles, no rales, no rhonchi and no wheezes Cardiovascular: Rate/Rhythm: regular rate and regular rhythm Heart Sounds: no gallop, no murmur and no cardiac rub Vessels: normal peripheral pulses; no JVD Extremities: no edema Gastrointestinal (Abdomen): Inspection/Auscultation: normal bowel sounds; abdomen not distended Percussion/Palpation: abdomen soft; abdomen nontender and no guarding Musculoskeletal: no cyanosis or clubbing, extremities motor strength 5/5 Neurologic: PERRL, EOMI, accommodation nl, no face palsy, no dysarthria CN's II-XI intact bilaterally and moves all extremities Psychiatric: Orientation: alert and oriented x 3 Results & Data Results & Data ([facility]) Vital Signs (Past 12 Hours) Vital Signs Pulse Pulse Resp BP BP Pulse Ox 10/27/21 11:00 91 H 12 131/87 95 10/27/21 08:51 73 16 114/65 95 10/27/21 06:00 70 16 113/85 96 10/27/21 05:00 62 16 119/77 95 10/27/21 02:00 77 15 110/66 95 10/27/21 01:00 63 23 92 Laboratory Results 10/27/21 10/27/21 10/25/21 Range/Units 06:26 06:26 16:45 PT 11.5 (9.0-12.0) Seconds INR 1.1 (0.9-1.1) Total Bilirubin 0.7 (0.2-1) mg/dl Direct Bilirubin 0.1 (0-0.2) mg/dl AST 53 H (15-37) U/L ALT 160 H (12-78) Alkaline Phosphatase 77 (45-117) U/L Total Protein 7.5 (6.4-8.2) gm/dl Albumin 4.0 (3.4-5.0) gm/dl U Marijuana THC Carboxy 3389 H (<5) ng/mL Drug Screen Comment SEE NOTE Medications Administered Current Inpatient Medications Acetylcysteine 7,500 mg/ (Dextrose) 1,037.5 mls @ 62.5 mls/hr IV ONCE ONE; Protocol Stop: 10/28/21 01:35 Last Admin: 10/27/21 10:46 Dose: 62.5 mls/hr Documented by: Ondansetron HCl (Ondansetron Inj 2 Mg/Ml 2 Ml Vial) 4 mg IV Q6H PRN PRN Reason: Nausea Stop: 11/24/21 22:58 Resident Activity Tracking Resident Involvement: Resident Care Provided Care Provided: Adult Hospital Medicine (1) Suicide attempt by multiple drug overdose Encounter type: initial encounter Qualified Code(s): T50.912A - Poisoning by multiple unspecified drugs, medicaments and biological substances, intentional self-harm, initial encounter
[2021-10-27 14:46] LABS: Marijuana Quant, GCMS Urine 3389 ng/mL (<5)
--- NOTE | 2021-10-27 15:17 | Ultrasound Report ---
US liver CLINICAL HISTORY: Elevated LFTs TECHNIQUE: Multiple real-time sonographic images of the right upper quadrant were obtained. Comparison: None available at the time of this dictation. FINDINGS: The liver is diffusely homogenous with normal contour and echogenicity. No focal mass lesions are se en. No intrahepatic ductal dilatation is seen. No gallstones or sludge are identified within the gallbladder. The gallbladder wall is not thickened. There is no pericholecystic fluid present. A son ographic Manzanares's sign was not elicited by the forest fire specialist supervisor. The common duct measures 0.5 cm in diam eter at the level of the hepatic artery. The visualized portions of the pancreas appear normal. The right kidney shows normal echogenicity, cortical thickness and renal contour. The right kidney sh ows no evidence of hydronephrosis or mass. There is a 1.5 x 1.3 x 1.3 cm cyst in the lower pole. No ascites or free fluid is seen in Melgar's pouch. IMPRESSION: No acute abnormalities. ACT 112: Negative or not required by law. Electronically signed by: Rhys Coles M.D. 10/27/2021 3:15 PM
--- NOTE | 2021-10-27 22:09 | Electrocardiogram Report ---
Test Reason : Blood Pressure : / mmHG Vent. Rate : 082 BPM Atrial Rate : 082 BPM P-R Int : 140 ms QRS Dur : 088 ms QT Int : 382 ms P-R-T Axes : 062 044 053 degrees QTc Int : 446 ms Normal sinus rhythm Normal ECG When compared with ECG of 25-OCT-2021 16:47, No significant change was found Confirmed by Miguel Colin ([id number]) on 10/27/2021 10:08:53 PM Referred By: REFERRED SELF Confirmed By:Miguel Colin
--- NOTE | 2021-10-27 22:22 | Billing Data ---
Date of Service October 27, 2021 Coding Level of Care Code 40974 Subseq Hosp Care Lvl 2
[2021-10-27 22:33] LABS: INR 1.2 (0.9-1.1)
[2021-10-27 22:47] LABS: Albumin Level 3.9 gm/dl (3.4-5.0); Bilirubin,Total 0.7 mg/dl (0.2-1); Total Protein 7.4 gm/dl (6.4-8.2)
[2021-10-27 22:48] LABS: Bilirubin Direct 0.2 mg/dl (0-0.2)
--- NOTE | 2021-10-27 23:28 | Communication Note ---
Date of Service: October 27, 2021 Received LFT's, and PT INR and relayed these to poison control. They explained that he did not need to continue NAC and would be medically cleared from a toxin standpoint but if anything else developed to call back. Number was [phone].
[2021-10-28 06:14] LABS: Basophils # (auto) 0.04 K/uL (0-0.2); Basophils % (auto) 0.7 %; Eosinophils # (auto) 0.19 K/uL (0-0.5); Eosinophils % (auto) 3.3 %; Hematocrit (blood only) 42.4 % (42-52); Hemoglobin 15.1 g/dL (14.0-18.0); Immature Granulocytes # (auto) 0.01 K/uL (0.00-0.02); Immature Granulocytes % (auto) 0.2 %; Lymphocytes # (auto) 2.48 K/uL (1.2-3.4); Lymphocytes % (auto) 42.6 %; Mean Corpuscular Hemoglobin 31.2 pg (25-34); Mean Corpuscular Hgb Conc 35.6 g/dL (32-36); Mean Corpuscular Volume 87.6 fL (80-100); Mean Platelet Volume 10.3 fL (7.4-10.4); Monocytes # (auto) 0.86 K/uL (0.11-0.59); Monocytes % (auto) 14.8 %; Neutrophils # (auto) 2.24 K/uL (1.4-6.5); Neutrophils % (auto) 38.4 %; Platelet Count 145 K/uL (130-400); RDW Coefficient of Variation 12.4 % (11.5-14.5); RDW Standard Deviation 39.6 fL (36.4-46.3); Red Blood Count 4.84 M/uL (4.7-6.1); White Blood Count 5.82 K/uL (4.8-10.8)
[2021-10-28 06:49] LABS: Albumin Level 4.1 gm/dl (3.4-5.0); BUN Creatinine Ratio 10.4 (10-20); Bilirubin Direct 0.2 mg/dl (0-0.2); Calcium 9.7 mg/dl (8.5-10.1); Creatinine Clr Calc Pharmacy 120.7 ml/min; Est GFR (African American) 139.3 ml/min; Est GFR (Non-African American) 120.2 ml/min; Potassium 4.4 mmol/L (3.5-5.1); Total Protein 7.7 gm/dl (6.4-8.2)
--- NOTE | 2021-10-28 10:31 | Discharge Summary ---
Date of Service October 28, 2021 Admission HPI Per Admitting Provider 20 yo M with hx anxiety, depression, unspecified PTSD brought to ER for attempted suicide by intentional OD. He took approximately half a 30 day bottle of hydroxyzine and lexapro. He denies any history of psychiatric hospitalizations, prior suicide attempts. He denies having had a plan, just that the suicidal ideations had been steadily building and today was a 'breaking point', and he took the pills because that was what was near him. He denies any family hx of psychiatric illness. He denies any visual/auditory/tactile hallucinations. He sees a psychiatrist in where he's from. He says he does have a support system and people to talk to locally, and has a decent relationship with his roommate. He denies any chest pain, SOB, numbness, tingling, dizziness. He does have a mild headache and feels dizzy. No chronic medical conditions or medications other than the hydroxyzine and lexapro. Denies smoking, vaping history. Smoked weed last week, but denies other drug use including cocaine/meth/heroine etc. No hx IVDU. Principal Diagnosis Suicide attempt, Ingestion/overdose of SSRI,hydroxyzine, Transaminitis Discharge Exam Constitutional WD/WN, vitals as above Eyes PERRL, conjunctivae normal, anicteric sclerae ENMT external ear and nose normal, oropharynx normal Neck trachea midline, no thyromegaly Respiratory normal respiratory effort, lungs clear to auscultation Cardiovascular RRR, no murmur, no edema Chest (Breasts) Chest: normal inspection of chest Gastrointestinal (Abdomen) normal bowel sounds, soft, nontender, no hepatosplenomegaly Musculoskeletal Extremities: extremities normal to inspection; no cyanosis and no clubbing Skin no rashes, warm and dry Neurologic moves all extremities and awake; no focal motor deficits Psychiatric A+Ox3, euthymic affect Lymphatic no lymphedema Discharge Data Allergies Allergy/AdvReac Type Severity Reaction Status Date / Time No Known Allergies Allergy Verified 10/26/21 02:27 Consultations 10/25/21 18:22 ED Decision to Admit Stat 10/26/21 12:06 Consult Psychiatry Routine Ordered Studies 10/27/21 09:02 US liver Routine Hospital Course (1) Suicide attempt by multiple drug overdose: 20 yo admitted for medical clearance after intentional overdose prior to psychiatric admission with 302. Suicide Attempt by Intentional Overdose: - EKG normal sinus with QTc 423. Daily EKGs for QTc monitoring showed normal QT - monitor for anticholinergic toxicity -- anhydrosis/hyperthermia/mydriasis/ delirium/hallucinations/bladder distension--> none -had mild elevation of AST,ALT, was treated with NAC x 48 hours and LFTs trended downward-this was recommended by Poison Control experts - Denies acetaminophen intake: per poison control discussion with ER provider, recommended NAC protocol. - undetectable salicylate and acetaminophen levels. - Creatinine Kinase negative - RUQ US negative - continue to hold Lexapro/Hydroxyzine at this time -check LFTs again in 3 days at [facility] (2) Depression: (3) Anxiety: (4) PTSD (post-traumatic stress disorder): (5) Transaminitis: Dispo-stable medically for discharge to [facility] Total Time Total Time Spent Total Time Spent (In Minutes): 35 min Total Time Includes: Examination of the Patient, Discharge Planning, Medication Reconciliation and Communication With Other Providers (Psychiatry) Discharge Plan Discharge Items Patient Disposition: Transfer Behavioral Health Fac Reason For Visit: INTENTIONAL OD Discharge Diagnosis: Suicide attempt, transaminitis Condition on Discharge: Good Activity: Per Instructions section Non-emergency contact: Primary Care Provider and Psychiatrist Call non-emergency contact if: you have any medication questions and your symptoms worsen Follow-up/Referrals: [facility] [Primary Care Provider] - Diet: Regular Addtl Attending Provider Instructions: You were seen and admitted following a suicide attempt by taking Lexapro and Hydroxyzine. During this time, we were able to mitigate the potential injury to your liver and watched the liver enzymes improve prior to being discharged. Now that you are being discharged it is important for you to continue to work with the behavioral health team, and as such you are being discharged to inpatient psychiatry rehab. Please have your liver enzymes checked in 3 days to ensure they continue to trend towards normal. Pending Studies at Discharge: No Stand-Alone Forms: My [facility] Skilled Items DNR: No Lines: None Urinary Catheter: No Admission Data Admit Date/Time: 10/25/21 22:00 Attending Provider: Ann Marie Saleh Admit Provider: Laurence Salinas Primary Care Provider: [facility] Other Providers: Thomas Peace ; Chayo Jung ; Mi Zheng ; Maryan Valenzuela ; Prosper Bailon Coding Level of Care Code D/C DAY MANAGEMENT >30 MINS Diagnoses Suicide attempt by multiple drug overdose T50.912A Encounter type: initial encounter Depression F32.A Anxiety F41.9 PTSD (post-traumatic stress disorder) F43.10 Transaminitis R74.01
== END 2021-10-28 13:34 | DRG 918 ==
LOC: ED 16:32 → SUATTDRO 22:00 → EDINP 22:00
DX: F41.1 Generalized anxiety disorder; R74.01 Elevation of levels of liver transaminase levels; T43.222A Poisoning by selective serotonin reuptake inhibitors, intentional self-harm, initial encounter; F32.1 Major depressive disorder, single episode, moderate; Y92.169 Unspecified place in school dormitory as the place of occurrence of the external cause; T43.592A Poisoning by other antipsychotics and neuroleptics, intentional self-harm, initial encounter; F43.10 Post-traumatic stress disorder, unspecified

== ENCOUNTER 2021-10-28 12:07 | Inpatient (IN) ==
[2021-10-28] MEDS ORDERED: BISMUTH SUBSALICYLATE LIQD 236 ML PO PRN (12:15)
[2021-10-28] MEDS ORDERED: SODIUM CHLORIDE 0.65% NA SOLN 45 ML (OCEAN) PRN (12:15)
[2021-10-28] MEDS ORDERED: ACETAMINOPHEN 325 MG TAB PO PRN (12:15)
[2021-10-28] MEDS ORDERED: ALUMINUM/MAGNESIUM SUSP 30 ML UDC PO PRN (12:15)
[2021-10-28] MEDS ORDERED: MAGNESIUM HYDROXIDE SUSP 30 ML UDC PO PRN (12:15)
[2021-10-28] MEDS ORDERED: hydrOXYzine HCl 25 MG TAB PO PRN ×2 (12:15)
--- NOTE | 2021-10-28 16:24 | History & Physical ---
Date of Service October 28, 2021 Impression / Recommendations Impression The patient is a 20 year old with a history of depression, anxiety, PTSD and marijuana use recently started on escitalopram who presented following an impulsive suicide attempt via polypharmacy on 201 status. Diagnostically consistent with TANMAY with panic attacks likely leading to acute severe anxiety and impulsive suicide attempt with possible contribution from recent initiation of SSRI and anxiety likely worsened by increased marijuana use. He remains at elevated acute risk of self-harm given suicide attempt with lethal potential though encouragingly was help seeking, impulsivity, recent major depressive episode, psychiatric comorbidities-PTSD/TANMAY. Chronic risk is low given multiple protective factors. The patient is deemed unstable and requires psychiatric hospitalization for diagnostic clarification, safety and stabilization, medication management and development of further coping skills. We discussed treatment options at length and currently he would like to avoid medication which I feel is reasonable at this time. We reviewed symptoms of worsening anxiety and depression to monitor such as hopelessness, helplessness, psychic distress, significant changes in sleep or appetite, anhedonia or re- emergence of SI as reasons to seek increased support and reconsider if medication would be warranted.If SSRI would be tried in the future would recommend very low starting dose and slow titration. Could consider propranolol or guanfacine or clonidine in the future if needed or desired for anxiety and panic attacks. Reviewed non-pharmacological treatment strategies including mindfulness, exercise, reducing marijuana use (which is motivated to do and agreeable to not using), development of increased coping skills and individual therapy. He would like to have melatonin available as needed for sleep. � (1) PTSD (post-traumatic stress disorder): (2) Suicide attempt by multiple drug overdose: Encounter type: initial encounter Qualified Code(s): T50.912A - Poisoning by multiple unspecified drugs, medicaments and biological substances, intentional self-harm, initial encounter (3) Generalized anxiety disorder with panic attacks: 10/28/21: The patient was admitted to the [facility] ([facility] mental health unit) on q15 min checks (behavioral with suicide precautions) for safety. The patient will participate in group, recreational, and milieu therapies and will be offered additional individual and family sessions as clinically appropriate. -melatonin 3 mg qhs prn -does not desire NRT, no current cravings -work on safety plan -investigate options for outpatient treatment including possible IOP for CBT for anxiety Inventory Assets Strengths: supportive family, insightful, motivated to engage in treatment Needs: potential IOP versus increase in intensity of outpatient therapy, increased coping skills Risk Factors Assessment Male: Yes : Yes Do You Have Access To A Gun?: No Health Problems: No Mental Health Diagnoses: Yes Substance Use Disorders: No Previous Attempt: Yes Family History of Suicide: No Previous Psychiatric Hospitalization: No Hopelessness: No Smoker: Yes Protective Factors Assessment Stable Relationships: Yes Supportive Family: Yes Good Rapport with Provider: Yes Psychiatric History Identifying Data SAE NUNES is a 20-year-old man 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 Chief Complaint "I'm glad to be alive". History of Present Illness Bruce presents for psychiatric admission following an impulsive suicide attempt. He is known to me from my assessment while he was being medically treated for the polypharmacy overdose. He recalls feeling on Thursday like "I was really stressed out" in the context of academic stressors and "impulsively" decided to take his medications in a suicide attempt. He states "I have no idea where it even came from, I've never been suicidal before" and then "immediately I regretted it and called 911". Currently he feels his mood has improved, especially in terms of the clarity of his thoughts which he attributes to being off the medication. Notably he also got an extension on his courses which has significantly reduced his stress and anxiety. He denies current symptoms of depression but endorses anxiety. He states he is currently "I'm really scared of medications" as he worries the recent start of Lexapro about 3 weeks ago may have contributed to his sudden thoughts of suicide and subsequent attempt. He notes of the attempt "that was so stupid" but that he's felt well supported by family and friends and is glad to be alive. He reports a history of generalized anxiety since childhood with worsening anxiety and mood in high school in the context of his sexual orientation and his family's denominational values. Since starting college his mood and anxiety had improved but this fall his anxiety worsened with panic attacks daily and feeling overwhelmed by and unable to complete his school assignments. In mid-August he sought help through [facility] and was started on lexapro and hydroxyzine. He found the lexapro extremely helpful for his anxiety but felt like he became more depressed and that this continued to worsen and felt as though "I was foggy" and "didn't feel as many emotions". He denied any history of suicidal thoughts, even with recent worsening of mood, until the day of the attempt. Psychiatric ROS notable for no hx prosper, no hx psychosis, no hx eating disorders, no hx OCD, hx marijuana use which increased this fall to daily use, hx PTSD. Past Psychiatric History Current Psychiatric Diagnosis: TANMAY, MDD Outpatient Services: has been seeing a therapist Mi Welch via teletherapy for the last 3 weeks. 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 Previous Psych Admissions: n/a Do You Have Access To A Gun?: No History of Previous Suicide Attempt: No Past Medication Trials: escitalopram 10mg and atarax 25mg daily prn for last 3 weeks Past Head Trauma/Neuro History History of Concussion/Seizure: No Allergies Allergy/AdvReac Type Severity Reaction Status Date / Time No Known Allergies Allergy Verified 10/26/21 02:27 Home Medications Medication Instructions Recorded Confirmed Type escitalopram oxalate 10 mg tablet 10 mg PO DAILY 10/28/21 10/28/21 History hydroxyzine HCl 25 mg tablet 25 mg PO TID PRN 10/28/21 10/28/21 History Family History Family Mental Health History Comment: adopted at Alcohol History Hx of Alcohol Use Over the Past 12 Months: Yes AUDIT Total Score: 4 Smoking Use Have You Smoked or Used Tobacco Products in the Last 30 Days: Yes Smoking Status: Current every day smoker (via vape ) Substance History Hx of Prescription Med Misuse Over the Past 12 Months: No Hx of Over the Counter Med Misuse Over the Past 12 Months: No Hx of Inhalent Misuse Over the Past 12 Months: No Hx of Organic Substance Use Over the Past 12 Months: Yes (marijuana daily since Fall 2020) Hx of Illegal Substances/Street Drug Use Over Past 12 Months: No Problems as a Result of Past Substance Use: None Identified Personal History Living Arrangements: Apartment Childhood: Adopted at , raised in [place]. Attended private [employer] schools until starting college at [employer] Highest Grade Completed: College Highest Grade Completed Comment: [employer] student Employment Status: Student Marital Status: Single Beliefs That Will Affect Care: None Current Legal Problems: No Hx Legal Problems: No Hx Traumatic Life Events: Yes (related to sexual orientation and conversion therapy) Patient History Medical History (Updated 10/28/21 @ 16:50 by Chayo Jung MD) Anxiety Depression TANMAY (generalized anxiety disorder) Generalized anxiety disorder with panic attacks PTSD (post-traumatic stress disorder) Social History Smoking Status: Never smoker Hx Alcohol Use: Yes Hx Substance Use: Yes Last Used Substance: Days (ago) Last Used Substance Other:: 3 Preferred Language: Somali Communication Ability: Effective Electric Meter [employer] Required: No Beliefs That Will Affect Care: None Current Living Situation: Parent Feels Safe at Home: Yes Assistive Devices: None Review of Systems Review of Systems: All systems reviewed & are unremarkable except as noted in HPI & below Physical Exam Psychiatric: Orientation: alert and oriented x 3 Apperance: appropriately dressed and appropriately groomed Eye Contact: good eye contact Motor Behavior: steady gait and station and no abnormal motor movements Speech: normal rate/rhythm/volume of speech Affect: + anxious affect Mood: + anxious mood Thought Process: goal directed thought process Thought Content: reality based without delusions Suicidal Thoughts: denies suicidal thoughts Homicidal Thoughts: denies homicidal thoughts Hallucinations: no auditory hallucinations and no visual hallucinations Cognition: recent memory grossly intact, remote memory grossly intact, attention grossly intact and language grossly intact Estimated Intelligence: consistent with education level Insight: + fair insight Judgement: + fair judgement Vital Signs (Past 24 Hours): Last Vital Signs Temp 36.7 C 10/28/21 14:27 Pulse 87 10/28/21 14:27 Resp 16 10/28/21 14:27 BP 118/73 10/28/21 14:27 Exam Statement: A physical exam was performed in the ED by Dr. Saleh for the purposes of medical clearance. I accept that physical as correct and adequate for the purposes of the inpatient physical exam. Results & Data (U) Current Inpatient Medications Current Inpatient Medications: Current Inpatient Medications Acetaminophen (Acetaminophen 325 Mg Tab) 650 mg PO Q4H PRN PRN Reason: Headache or Minor Fever Stop: 11/27/21 12:14 Al Hydrox/Mg Hydrox/Simethicone (Aluminum/Magnesium Susp 30 Ml Udc) 30 ml PO Q4H PRN PRN Reason: GI Upset Stop: 11/27/21 12:14 Bismuth Subsalicylate (Bismuth Subsalicylate Liqd 236 Ml) 15 ml PO PRN PRN PRN Reason: Loose Stool Stop: 11/27/21 12:14 Hydroxyzine HCl (Hydroxyzine Hcl 25 Mg Tab) 50 mg PO HSZ PRN PRN Reason: Insomnia Stop: 11/27/21 12:14 Hydroxyzine HCl (Hydroxyzine Hcl 25 Mg Tab) 25 mg PO Q4H PRN PRN Reason: Anxiety Stop: 11/27/21 12:14 Magnesium Hydroxide (Magnesium Hydroxide Susp 30 Ml Udc) 30 ml PO DAILY PRN PRN Reason: Constipation Stop: 11/27/21 12:14 Sodium Chloride (Sodium Chloride 0.65% Na Soln 45 Ml ([place])) 1 - 2 sprays NA PRN PRN PRN Reason: Nasal Dryness/Congestion Stop: 11/27/21 12:14
[2021-10-28] MEDS ORDERED: MELATONIN 3 MG TAB PO PRN (21:46)
[2021-10-29 10:09] LABS: Alanine Aminotransferase 121 (12-78); Albumin Level 4.6 gm/dl (3.4-5.0); Aspartate Aminotransferase 32 U/L (15-37); BUN Creatinine Ratio 14.4 (10-20); Blood Urea Nitrogen 15 mg/dl (7-18); Carbon Dioxide 28 mmol/L (21-32); Chloride 105 mmol/L (98-107); Est GFR (African American) 117.3 ml/min; Est GFR (Non-African American) 101.2 ml/min; Glucose 104 mg/dl (70-99); Potassium 4.3 mmol/L (3.5-5.1); Sodium 138 mmol/L (136-145)
[2021-10-29 10:11] LABS: Albumin Globulin Ratio 1.2 (0.9-2); Alkaline Phosphatase 86 U/L (45-117); Globulin 3.7 gm/dl (2.5-4.0); Total Protein 8.3 gm/dl (6.4-8.2)
--- NOTE | 2021-10-29 12:34 | Psychiatric Progress Note ---
Date of Service October 29, 2021 Impression / Recommendations Impression The patient is a 20 year old with a history of depression, anxiety, PTSD and marijuana use recently started on escitalopram who presented following an impulsive suicide attempt via polypharmacy on 201 status. Diagnostically consistent with TANMAY with panic attacks likely leading to acute severe anxiety and impulsive suicide attempt with possible contribution from recent initiation of SSRI and anxiety likely worsened by increased marijuana use. He remains at elevated acute risk of self-harm given suicide attempt with lethal potential though encouragingly was help seeking, impulsivity, recent major depressive episode, psychiatric comorbidities-PTSD/TANMAY. Chronic risk is low given multiple protective factors. The patient is deemed unstable and requires psychiatric hospitalization for diagnostic clarification, safety and stabilization, medication management and development of further coping skills. 10/29/21: some abdominal pain this morning so discussed with hospitalist given recent medical admission and overdose, she recommended CMP which showed normalization of AST and improvement of ALT (downtrending) which is reassuring. No further testing or workup recommended. Anxiety improving especially as he practices coping skills, and engaged in coping skills groups. (1) PTSD (post-traumatic stress disorder): (2) Suicide attempt by multiple drug overdose: (3) Generalized anxiety disorder with panic attacks: 10/29/21: -Investigate IOP options vs increased intensity of outpatient therapy in [place] -Will need to schedule family meeting -Will need to do safety plan -Continue with melatonin 3 mg qhs prn 10/28/21: The patient was admitted to the [facility] ([facility]) on q15 min checks (behavioral with suicide precautions) for safety. The patient will participate in group, recreational, and milieu therapies and will be offered additional individual and family sessions as clinically appropriate. -melatonin 3 mg qhs prn -does not desire NRT, no current cravings -work on safety plan -investigate options for outpatient treatment including possible IOP for CBT for anxiety Inventory Assets Strengths: supportive family, insightful, motivated to engage in treatment Needs: potential IOP versus increase in intensity of outpatient therapy, increased coping skills Risk Factors Assessment Male: Yes : Yes Do You Have Access To A Gun?: No Health Problems: No Mental Health Diagnoses: Yes Substance Use Disorders: No Previous Attempt: Yes Family History of Suicide: No Previous Psychiatric Hospitalization: No Hopelessness: No Smoker: Yes Protective Factors Assessment Stable Relationships: Yes Supportive Family: Yes Good Rapport with Provider: Yes Interval History Identifying Information SAE NUNES is a 20-year-old man 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 Chief Complaint "I'm doing ok". Review of Systems Sleep Information Total Hours of Sleep: 7 Sleep Comments: pt given melatonin per rn. pt on q-15 minute checks Meal Information Percent Meal Consumed - Breakfast: 100 Percent Meal Consumed - Dinner: 100 Subjective Subjective Patient was seen & assessed and interval progress reviewed with treatment team nursing and social work. Had some mild LLQ abdominal pain vs gas this morning and some loose stools. Pain resolved within 30 minutes. Blood draw ordered at that time after discussion with hospitalist. Took melatonin last night to help with sleep. Today reports stable mood. Engaging in groups. No further abdominal pain. Had some anxiety yesterday during group as topics discussed felt very relevant but he tried the recommended coping strategies which helped reduce his anxiety. Remains willing to consider IOP. Physical Exam Psychiatric Orientation: alert and oriented x 3 Apperance: appropriately dressed and appropriately groomed Eye Contact: good eye contact Motor Behavior: steady gait and station and no abnormal motor movements Speech: normal rate/rhythm/volume of speech Affect: + anxious affect Mood: + anxious mood Thought Process: goal directed thought process Thought Content: reality based without delusions Suicidal Thoughts: denies suicidal thoughts Homicidal Thoughts: denies homicidal thoughts Hallucinations: no auditory hallucinations and no visual hallucinations Cognition: recent memory grossly intact, remote memory grossly intact, attention grossly intact and language grossly intact Estimated Intelligence: consistent with education level Insight: + fair insight Judgement: + fair judgement Vital Signs (Past 24 Hours) Last Vital Signs Temp 36.6 C 10/29/21 09:07 Pulse 75 10/29/21 09:07 Resp 16 10/29/21 06:31 BP 129/79 10/29/21 09:07 Results & Data ([facility] Laboratory Results Laboratory Results - last 24 hr 10/29/21 09:39 Sodium 138 Potassium 4.3 Chloride 105 Carbon Dioxide 28 Anion Gap 5.0 BUN 15 Creatinine 1.06 Est Cr Clr Drug Dosing Not Reportable Est GFR ( Amer) 117.3 Est GFR (Non-Af Amer) 101.2 BUN/Creatinine Ratio 14.4 Glucose 104 H Calcium 10.0 Total Bilirubin 1.0 AST 32 ALT 121 H Alkaline Phosphatase 86 Total Protein 8.3 H Albumin 4.6 Globulin 3.7 Albumin/Globulin Ratio 1.2 Current Inpatient Medications Current Inpatient Medications: Current Inpatient Medications Acetaminophen (Acetaminophen 325 Mg Tab) 650 mg PO Q4H PRN PRN Reason: Headache or Minor Fever Stop: 11/27/21 12:14 Al Hydrox/Mg Hydrox/Simethicone (Aluminum/Magnesium Susp 30 Ml Udc) 30 ml PO Q4H PRN PRN Reason: GI Upset Stop: 11/27/21 12:14 Bismuth Subsalicylate (Bismuth Subsalicylate Liqd 236 Ml) 15 ml PO PRN PRN PRN Reason: Loose Stool Stop: 11/27/21 12:14 Hydroxyzine HCl (Hydroxyzine Hcl 25 Mg Tab) 50 mg PO HSZ PRN PRN Reason: Insomnia Stop: 11/27/21 12:14 Hydroxyzine HCl (Hydroxyzine Hcl 25 Mg Tab) 25 mg PO Q4H PRN PRN Reason: Anxiety Stop: 11/27/21 12:14 Magnesium Hydroxide (Magnesium Hydroxide Susp 30 Ml Udc) 30 ml PO DAILY PRN PRN Reason: Constipation Stop: 11/27/21 12:14 Melatonin (Melatonin 3 Mg Tab) 3 mg PO HS PRN PRN Reason: Sleep Stop: 11/27/21 21:45 Last Admin: 10/28/21 21:54 Dose: 3 mg Documented by: Sodium Chloride (Sodium Chloride 0.65% Na Soln 45 Ml ([place])) 1 - 2 sprays NA PRN PRN PRN Reason: Nasal Dryness/Congestion Stop: 11/27/21 12:14 Mental Health & Subst Abuse Tx Therapist Name of Therapist: Deonna Welch (1) Suicide attempt by multiple drug overdose Encounter type: initial encounter Qualified Code(s): T50.912A - Poisoning by multiple unspecified drugs, medicaments and biological substances, intentional self-harm, initial encounter
--- NOTE | 2021-10-30 15:17 | Psychiatric Progress Note ---
Date of Service October 30, 2021 Impression / Recommendations Impression The patient is a 20 year old with a history of depression, anxiety, PTSD and marijuana use recently started on escitalopram who presented following an impulsive suicide attempt via polypharmacy on 201 status. Diagnostically consistent with TANMAY with panic attacks likely leading to acute severe anxiety and impulsive suicide attempt with possible contribution from recent initiation of SSRI and anxiety likely worsened by increased marijuana use. He remains at elevated acute risk of self-harm given suicide attempt with lethal potential though encouragingly was help seeking, impulsivity, recent major depressive episode, psychiatric comorbidities-PTSD/TANMAY. Chronic risk is low given multiple protective factors. The patient is deemed unstable and requires psychiatric hospitalization for diagnostic clarification, safety and stabilization, medication management and development of further coping skills. 10/30/21: no further abdominal pain and appetite is improving. Mood remains stable with no SI and anxiety improving especially as he practices coping skills, and engaged in coping skills groups. (1) PTSD (post-traumatic stress disorder): (2) Suicide attempt by multiple drug overdose: (3) Generalized anxiety disorder with panic attacks: 10/30/21: -Family meeting held -Working on safety plan -Continue with melatonin 3 mg qhs prn -Plan for outpatient therapy multiple days per week with therapist to refer to IOP if needed 10/29/21: -Investigate IOP options vs increased intensity of outpatient therapy in [place] -Will need to schedule family meeting -Will need to do safety plan -Continue with melatonin 3 mg qhs prn 10/28/21: The patient was admitted to the [facility] ([facility]) on q15 min checks (behavioral with suicide precautions) for safety. The patient will participate in group, recreational, and milieu therapies and will be offered additional individual and family sessions as clinically appropriate. -melatonin 3 mg qhs prn -does not desire NRT, no current cravings -work on safety plan -investigate options for outpatient treatment including possible IOP for CBT for anxiety Inventory Assets Strengths: supportive family, insightful, motivated to engage in treatment Needs: potential IOP versus increase in intensity of outpatient therapy, increased coping skills Risk Factors Assessment Male: Yes : Yes Do You Have Access To A Gun?: No Health Problems: No Mental Health Diagnoses: Yes Substance Use Disorders: No Previous Attempt: Yes Family History of Suicide: No Previous Psychiatric Hospitalization: No Hopelessness: No Smoker: Yes Protective Factors Assessment Stable Relationships: Yes Supportive Family: Yes Good Rapport with Provider: Yes Interval History Identifying Information SAE NUNES is a 20-year-old man 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 Chief Complaint "I'm feeling good". Review of Systems Sleep Information Total Hours of Sleep: 7 Sleep Comments: pt given melatonin per rn. pt on q-15 minute checks Meal Information Percent Meal Consumed - Breakfast: 100 Percent Meal Consumed - Lunch: 100 Percent Meal Consumed - Dinner: 90 Subjective Subjective Patient was seen & assessed and interval progress reviewed with treatment team nursing and social work. Some difficulty with sleep due to interruptions of fire alarm and nursing checks/vitals. Mood is stable and he feels anxiety has improved significantly. No panic attacks. No SI. Had family meeting which went well. Working on his safety plan. Physical Exam Psychiatric Orientation: alert and oriented x 3 Apperance: appropriately dressed and appropriately groomed Eye Contact: good eye contact Motor Behavior: steady gait and station and no abnormal motor movements Speech: normal rate/rhythm/volume of speech Affect: euthymic affect Mood: no depressed mood and no anxious mood Thought Process: goal directed thought process Thought Content: reality based without delusions Suicidal Thoughts: denies suicidal thoughts Homicidal Thoughts: denies homicidal thoughts Hallucinations: no auditory hallucinations and no visual hallucinations Cognition: recent memory grossly intact, remote memory grossly intact, attention grossly intact and language grossly intact Estimated Intelligence: consistent with education level Insight: good insight Judgement: + fair judgement Vital Signs (Past 24 Hours) Last Vital Signs Temp 36.8 C 10/30/21 06:26 Pulse 77 10/30/21 06:26 Resp 16 10/30/21 06:26 BP 110/65 10/30/21 06:26 Pulse Ox 96 10/30/21 06:26 Results & Data ([facility]) Current Inpatient Medications Current Inpatient Medications: Current Inpatient Medications Acetaminophen (Acetaminophen 325 Mg Tab) 650 mg PO Q4H PRN PRN Reason: Headache or Minor Fever Stop: 11/27/21 12:14 Al Hydrox/Mg Hydrox/Simethicone (Aluminum/Magnesium Susp 30 Ml Udc) 30 ml PO Q4H PRN PRN Reason: GI Upset Stop: 11/27/21 12:14 Bismuth Subsalicylate (Bismuth Subsalicylate Liqd 236 Ml) 15 ml PO PRN PRN PRN Reason: Loose Stool Stop: 11/27/21 12:14 Hydroxyzine HCl (Hydroxyzine Hcl 25 Mg Tab) 50 mg PO HSZ PRN PRN Reason: Insomnia Stop: 11/27/21 12:14 Hydroxyzine HCl (Hydroxyzine Hcl 25 Mg Tab) 25 mg PO Q4H PRN PRN Reason: Anxiety Stop: 11/27/21 12:14 Magnesium Hydroxide (Magnesium Hydroxide Susp 30 Ml Udc) 30 ml PO DAILY PRN PRN Reason: Constipation Stop: 11/27/21 12:14 Melatonin (Melatonin 3 Mg Tab) 3 mg PO HS PRN PRN Reason: Sleep Stop: 11/27/21 21:45 Last Admin: 10/28/21 21:54 Dose: 3 mg Documented by: Sodium Chloride (Sodium Chloride 0.65% Na Soln 45 Ml ([place])) 1 - 2 sprays NA PRN PRN PRN Reason: Nasal Dryness/Congestion Stop: 11/27/21 12:14 Mental Health & Subst Abuse Tx Psychiatrist Name of Psychiatrist: None Therapist Name of Therapist: Mikaela Wilcox Therapist's (personal cell) Date of Therapist Appointment: 11/02/21 Time of Therapist Appointment: 2pm Post Discharge Appointments Primary Care Physician Name Of Family Doctor: [facility] Date of Appointment with PCP: 11/05/21 Time of Appointment with PCP: 11am Provider Appointment Comment: [id number] [address], [facility], [id number] Contact Information Discharge Discharge [address]: [address] [place] [address] [place] [address] (1) Suicide attempt by multiple drug overdose Encounter type: initial encounter Qualified Code(s): T50.912A - Poisoning by multiple unspecified drugs, medicaments and biological substances, intentional self-harm, initial encounter
--- NOTE | 2021-10-31 10:33 | Discharge Summary ---
Date of Service October 31, 2021 History of Present Illness Bruce presents for psychiatric admission following an impulsive suicide attempt. He is known to me from my assessment while he was being medically treated for the polypharmacy overdose. He recalls feeling on Thursday like "I was really stressed out" in the context of academic stressors and "impulsively" decided to take his medications in a suicide attempt. He states "I have no idea where it even came from, I've never been suicidal before" and then "immediately I regretted it and called 911". Currently he feels his mood has improved, especially in terms of the clarity of his thoughts which he attributes to being off the medication. Notably he also got an extension on his courses which has significantly reduced his stress and anxiety. He denies current symptoms of depression but endorses anxiety. He states he is currently "I'm really scared of medications" as he worries the recent start of Lexapro about 3 weeks ago may have contributed to his sudden thoughts of suicide and subsequent attempt. He notes of the attempt "that was so stupid" but that he's felt well supported by family and friends and is glad to be alive. He reports a history of generalized anxiety since childhood with worsening anxiety and mood in high school in the context of his sexual orientation and his family's judaism values. Since starting college his mood and anxiety had improved but this fall his anxiety worsened with panic attacks daily and feeling overwhelmed by and unable to complete his school assignments. In mid-August he sought help through [facility] and was started on lexapro and hydroxyzine. He found the lexapro extremely helpful for his anxiety but felt like he became more depressed and that this continued to worsen and felt as though "I was foggy" and "didn't feel as many emotions". He denied any history of suicidal thoughts, even with recent worsening of mood, until the day of the attempt. Psychiatric ROS notable for no hx prosper, no hx psychosis, no hx eating disorders, no hx OCD, hx marijuana use which increased this fall to daily use, hx PTSD. Physical Exam Vital Signs (Past 24 Hours) Last Vital Signs Temp 36.6 C 10/31/21 06:23 Pulse 80 10/31/21 06:23 Resp 16 10/31/21 06:23 BP 98/61 L 10/31/21 06:24 Pulse Ox 96 10/30/21 06:26 See admission H&P and DOD summary. Principal Diagnosis Generalized anxiety disorder with panic attacks Psychiatric Data See daily stay summary. In short, patient was engaged with the social/therapeutic milieu of the unit, safety was maintained and the patient was cooperative with care. Medication changes included discontinuation of hydroxyzine and escitalopram, continued to have melatonin 3 mg qhs prn available for insomnia and they tolerated this well. Reviewed with Bruce reasons to consider medication in the future including if depressive symptoms re-occurred including hopelessness, worthlessness, SI, anhedonia, or changes in sleep and appetite. Discussed that should depressive symptoms or severe anxiety present in the future with prominent issues with concentration would consider Wellbutrin XL with slow titration as concentration difficulties seemed to drive most of the anxiety symptoms and NE/D mechanism of action would be worth trying since he had a poor reaction to SSRI. Propranolol or guanfacine could also be considered in the future if necessary for anxiety. A family session was held and safety plan was completed prior to discharge. Bruce consistently denied depressive symptoms with no SI during admission. His anxiety improved as he explored more coping skills and discussed recommendations to reduce or avoid marijuana use in the f uture and consider additional mindfulness activities and exercise. He will be seeing his outpatient therapist tomorrow for follow-up and then will either participate in more frequent outpatient therapy or she will refer him for IOP level of care and see him in the interim until that begins. Reviewed having safety plan easily accessible and a mobile effie for safety plan if desired as well as option to try CBT-oriented effie for panic attacks. Day of Discharge Assessment Today the patient voices readiness for discharge. They note improvement in mood and anxiety. He is excited to return home to [place] for winter break and to see his family and friends. He is future-oriented and feels well supported by plan to engage in outpatient therapy. They deny thoughts of harm to self or others. Thoughts remain organized and they are clinically improved from admission. There is no evidence of psychosis. They improved in the hospital with support. They agree to keep follow-up appointments. At the time of the discharge they are deemed to be stable and appropriate for outpatient level of care. They are not deemed to be at imminent risk of harm to self or others. They are aware of emergency and crisis services. Knows to call 911 or go to nearest emergency care center if in a crisis which cannot be handled as an outpatient. Transition of Care Transition Of Care Record: was reviewed with the patient Advance Directives Advance Directives Information Provided: Yes Advance Directives: No Mental Health Advance Directive: No Advance Directives on File: No Living Will: No Power of Digital Program Manager: No Advance Directives Reason:: Declines as Mental Health Visit. Risk Factors Assessment Male: Yes : Yes Do You Have Access To A Gun?: No Health Problems: No Mental Health Diagnoses: Yes Substance Use Disorders: No Previous Attempt: Yes Family History of Suicide: No Previous Psychiatric Hospitalization: No Hopelessness: No Smoker: Yes Protective Factors Assessment Stable Relationships: Yes Supportive Family: Yes Good Rapport with Provider: Yes Discharge Data Lab Results 10/29/21 09:39 Sodium 138 Potassium 4.3 Chloride 105 Carbon Dioxide 28 Anion Gap 5.0 BUN 15 Creatinine 1.06 Est Cr Clr Drug Dosing Not Reportable Est GFR ( Amer) 117.3 Est GFR (Non-Af Amer) 101.2 BUN/Creatinine Ratio 14.4 Glucose 104 H Calcium 10.0 Total Bilirubin 1.0 AST 32 ALT 121 H Alkaline Phosphatase 86 Total Protein 8.3 H Albumin 4.6 Globulin 3.7 Albumin/Globulin Ratio 1.2 Hospital Course (1) PTSD (post-traumatic stress disorder): (2) Suicide attempt by multiple drug overdose: (3) Generalized anxiety disorder with panic attacks: 10/30/21: -Family meeting held -Completed and reviewed safety plan -Continue with melatonin 3 mg qhs prn -Plan for outpatient therapy multiple days per week with therapist to refer to IOP if needed 10/29/21: -Investigate IOP options vs increased intensity of outpatient therapy in [place] -Will need to schedule family meeting -Will need to do safety plan -Continue with melatonin 3 mg qhs prn 10/28/21: The patient was admitted to the [facility] ([facility] unit) on q15 min checks (behavioral with suicide precautions) for safety. The patient will participate in group, recreational, and milieu therapies and will be offered additional individual and family sessions as clinically appropriate. -melatonin 3 mg qhs prn -does not desire NRT, no current cravings -work on safety plan -investigate options for outpatient treatment including possible IOP for CBT for anxiety Mental Health & Subst Abuse Tx Psychiatrist Name of Psychiatrist: None Therapist Name of Therapist: Mikaela Ivory-Mi Wilcox Therapist's (personal cell) Date of Therapist Appointment: 11/02/21 Time of Therapist Appointment: 2pm Post Discharge Appointments Primary Care Physician Name Of Family Doctor: [facility] Date of Appointment with PCP: 11/05/21 Time of Appointment with PCP: 11am Provider Appointment Comment: [id number] [address], [facility], [address] Other #1: Name of Aftercare Appointment: [facility] Phone Number of Aftercare Appointment: [phone] Date of Aftercare Appointment: 11/19/21 Time of Aftercare Appointment: 3pm Aftercare Appointment Comment: [email or web address] Contact Information Discharge Discharge Address: [address] [place] [place], [place] [address] Discharge Plan Discharge Items Patient Disposition: Home - Self-Care Reason For Visit: MDD Discharge Diagnosis: Generalized anxiety disorder with panic attacks Activity: Resume your previous activity Non-emergency contact: Primary Care Provider and Therapist Call non-emergency contact if: you have any medication questions and your sympt oms worsen Follow-up/Referrals: [place],[facility] [Primary Care Provider] - Diet: Regular Addtl Attending Provider Instructions: SPECIAL CARE INSTRUCTIONS: 1. Follow through with your scheduled aftercare appointments. If unable to keep an appointment, please call to reschedule. 2. Take your medication only as prescribed. Medication should not be changed or stopped without the approval of your doctor. In the event of worsening symptoms or concerns about side effects, contact your doctor immediately. 3. Utilize new healthy coping skills, anger management skills, and stress management skills learned during your hospitalization. Journal feelings and process them with a support person. Identify stressors or situations that may result in relapse, deterioration or inappropriate behaviors and develop a plan to deal with those issues. 4. If your coping skills are ineffective and you are in crisis, contact your outpatient providers for direction. If unable to reach your providers, please call the [facility] CRISIS LINE AT , go to the [facility] walk-in center at [address], [address], [place], or go to the closest Emergency Room. 5. Avoid alcohol and un-prescribed drugs. 6. You have been provided with the Mental Health Advance Directives Pamphlet for your review. 7. Your condition is stable for discharge to outpatient level of care, but recovery is an ongoing process. If�thoughts to harm yourself or others return, follow the safety plan developed during your stay. Planning for a safe return home includes securing weapons. Our treatment team recommends weapons�be removed from the home until your outpatient provider reassesses your progress. In rare cases where the items� themselves�cannot be removed, guns and ammunition�should be secured separately�and keys stored by a reliable person�outside of the home. If you were admitted on an involuntary commitment, the police or other legal authorities may be involved in this process.� AFTERCARE APPOINTMENTS: * Please call your insurance company prior to your scheduled appointment to confirm your aftercare providers are covered. Take your insurance information to your appointments. WHO TO CALL AND WHEN: Medical Emergencies: For questions or emergencies related to your hospital stay, please contact the Inpatient Behavioral Health Unit at [phone]. A suit maker is on-call 08/06 for the Behavioral Health Unit for emergencies At any time you feel your situation is an emergency, you may also call 911 immediately. Future Resource: -Could try Panic [employer] mobile effie if desired to help manage panic attacks and anxiety symptoms (it uses a CBT approach) Pending Studies at Discharge: No Stand-Alone Forms: [facility], Smoking Cessation Medications and DC Order Prescriptions: Discontinued escitalopram oxalate 10 mg Tablet 10 mg PO DAILY RF: 0 hydroxyzine HCl 25 mg Tablet 25 mg PO BID PRN (Reason: anxiety) RF: 0 Discharge Orders: Discharge Order (Routine); Ordered 10/31/21 Ordered By: Chayo Christine/Other Patient Handouts: Journaling for Mental Health, Coping with PTSD, Your Body's Response to Anxiety, Counseling for Depression, Depression: Tips to Help Yourself, Know the Symptoms of Depression, Anxiety Disorders Tx Therapy, Understanding Generalized ... Admission Data Admit Date/Time: 10/28/21 13:35 Attending Provider: Chayo Jung Admit Provider: Chayo Jung Primary Care Provider: [facility] Coding Level of Care Code 56164 D/C day mgmt > 30 min Diagnoses PTSD (post-traumatic stress disorder) F43.10 Suicide attempt by multiple drug overdose T50.912A Encounter type: initial encounter Generalized anxiety disorder with panic attacks F41.1; F41.0 Time Spent (min) 40
[2021-10-31] MEDS ORDERED: IBUPROFEN 200 MG TAB PO PRN (10:45)
== END 2021-10-31 15:15 | disposition home or self-care (01) | DRG 880 ==
LOC: 3S 13:35
DX: F43.10 Post-traumatic stress disorder, unspecified; F41.0 Panic disorder [episodic paroxysmal anxiety]; F12.10 Cannabis abuse, uncomplicated; F41.1 Generalized anxiety disorder; T50.912A Poisoning by multiple unspecified drugs, medicaments and biological substances, intentional self-harm, initial encounter; U07.0 Vaping-related disorder; Y92.89 Other specified places as the place of occurrence of the external cause